=== PATIENT | female | born 1995 | race Caucasian/White ===

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

== ENCOUNTER → 2017-05-10 | Outpatient (CLI) | payer BC, OTHER ==
[2017-05-10 13:29] LABS: URINE APPEARANCE CLEAR (CLEAR); URINE BILIRUBIN NEG (NEG); URINE COLOR YELLOW; URINE NITRITE NEG (NEG); URINE PH 7.5 (4.5-7.5); URINE SPECIFIC GRAVITY 1.016 (1.000-1.030); UROBILINOGEN NEG (NEG)
[2017-05-10 13:39] LABS: MANUAL MICROSCOPIC REQUIRED? NO; REVIEW REQ? NO
== END ==
LOC: C.LABBFT 11:16
PROVIDERS: ATTEND Physician Assistant
DX: R39.9 Unspecified symptoms and signs involving the genitourinary system (principal)

== ENCOUNTER 2017-06-14 17:56 | Emergency (ER) | payer BC, OTHER ==
[~2017-06-14] VITALS: Ht 162.6 cm; Wt 83.0 kg
[~2017-06-14 17:56] MED LIST changes: -ALBU18002 INH; -AMPH20TA2 PO; -BCPILLS PO; -BENZ1CAP90 PO
[2017-06-14 17:57] VITALS: TEMP 37.1; Ht 162.6 cm; Wt 83.0 kg
[2017-06-14] MEDS ORDERED: ALBU18002 INH (18:21)
[2017-06-14] MEDS ORDERED: BCPILLS PO (18:24)
[2017-06-14] MEDS ORDERED: AMPH20TA2 PO (18:24)
--- NOTE | 2017-06-14 18:27 | EMERGENCY ROOM VISIT NOTE ---
ED Visit Note First contact with patient: 18:07 CHIEF COMPLAINT: Sore throat, bilateral ear pain, lost her voice, difficulty catching her breath HISTORY OF PRESENT ILLNESS: This 22-year-old female patient presents to the emergency department, ambulatory, complaining of cold-like symptoms for 3 days. The patient states she initially noticed sore throat and bilateral ear pain, however today she awoke and noticed that she was having difficulty speaking. The patient did see her PCP earlier this week who advised her that the condition is viral in nature, did not start her on antibiotics. The patient does complain of congestion and diarrhea. She states she has not had a runny nose, but does get difficulty catching her breath. Patient denies fever, chills , nausea, vomiting. The patient's mother is currently fighting bronchitis. Has only used cough drops for her symptoms, and has taken no OTC cold medications. She denies any chest pain, wheezing, coughing up sputum or blood, headache, fever, chills, and nausea, vomiting, or other associated symptoms. REVIEW OF SYSTEMS: A 10 system review of systems was performed with positives and pertinent negatives listed in the history of present illness. All other systems were reviewed and are negative. ALLERGIES: None MEDICATIONS: Adderall, oral control pills PMH: None SOCIAL HISTORY: The patient lives locally with family. She denies drug, alcohol use. The patient states she does smoke approximately 6 cigarettes per day. PHYSICAL EXAM: VITALS: Vitals are noted on the nurse's note and reviewed by myself. Vital signs stable. GENERAL: This is a 22-year-old white female, in no acute distress, nondiaphoretic, well-developed well-nourished. SKIN: The skin was without rashes, erythema, edema, or bruising. There is no tenting of the skin. Capillary reflex less than 2 seconds. HEAD: Normocephalic atraumatic. EARS: External auditory canals clear, tympanic membranes pearly sotelo without erythema or effusion bilaterally. EYES: Pupils equal round and reactive to light and accommodation. Conjunctivae without injection, sclerae without icterus. Extraocular movements intact. NOSE: Patent, turbinates without inflammation or discharge. No sinus tenderness. MOUTH: Mucous membranes moist. Tonsils are not enlarged. Pharynx without erythema or exudate. Uvula midline. Airway patent. Tongue does not deviate. NECK: Supple without nuchal rigidity. No lymphadenopathy. No thyromegaly. Cervical spine is nontender. No JVD. HEART: Regular rate and rhythm without murmurs gallops or rubs. LUNGS: Clear to auscultation bilaterally without wheezes, rales or rhonchi. No dullness to percussion. No retractions or accessory muscle use. MUSCULOSKELETAL: No muscle atrophy, erythema, or edema noted. Full range of motion without joint tenderness in all extremities. No tenderness to palpation. Normal gait. Strength 5/5 throughout. NEURO: Patient was alert and oriented to person place and time. Normal sensation to light and sharp touch. Deep tendon reflexes 2+ throughout. No focal neurological deficits. EMERGENCY DEPARTMENT COURSE: The patient was seen and evaluated as above. I had a very extensive discussion with her regarding the likely viral etiology of her illness. The patient was encouraged to use OTC medications for symptomatic relief, and advised to follow up if she is not experiencing improvement in her symptoms and 1 week. I did offer the patient a chest x-ray to rule out pneumonia, however I do not feel that this is necessary, as she is not consistently coughing up sputum, and has not been febrile. The patient states she is okay not having the x-ray completed. The patient was discharged home in good condition. I attest that I have personally reviewed the patient's current medication list. Patient was found to have normal blood pressure on screening and does not require follow-up. DIFFERENTIAL DIAGNOSIS: Upper respiratory infection, pneumonia, bronchitis, tracheobronchitis, laryngitis, strep throat pharyngitis, otitis media, acute sinusitis, malignancy, and others DIAGNOSIS: Upper respiratory infection, laryngitis DISCHARGE INSTRUCTIONS & TREATMENT: You were seen and evaluated in the emergency department today for an upper respiratory infection. I do feel that based on your symptoms, and the duration of illness, this is likely viral in nature. As discussed, antibiotics will not treat viral illness. You have been provided with an albuterol inhaler to use for wheezing or difficulty breathing. Use this inhaler 1-2 puffs every 4-6 hours as needed. If you find that your symptoms are not improving with the use of the inhaler, or if you find that you need to use the inhaler longer than 1 week, return to the ED or follow-up with your PCP. You have been given benzonatate (Tessalon Pearles) to be used for coughing. These should be taken 1 capsule up to 3 times per day as needed for coughing. Do not take this medication more than prescribed. You may use this medication in addition to OTC cough medications. For your sore throat, you may use a 1:1 mixture of liquid Benadryl and liquid Maalox. Gargle and spit this mixture. It will help to soothe the throat and provide some relief. Drink warm tea with honey and lemon, as this will also help to soothe the throat. Gargle with salt water frequently. As discussed, you should take OTC Mucinex and/or Sudafed for your symptoms. Please do not exceed the recommended daily dosages. Ibuprofen(Motrin, Advil) may be used for fever or pain. Use 600mg every six hours as needed. Take with food. Avoid using more than 2400mg in a 24 hour period. Do not use 2400mg per day for more than three consecutive days without physician direction. Prolonged inappropriate use can lead to stomach upset or ulcers. You may take Naproxen 1-2 tablets twice daily in place of ibuprofen. This medication will help with the swelling in your sinuses. (AND/OR) Acetaminophen(Tylenol) may be used for fever or pain. Use 1000mg every six hours as needed. Avoid using more than 3000mg in a 24 hour period. For congestion, you may use Flonase OTC. You may want to consider zinc, echinacea, and vitamin C to help boost your immunity. Please get plenty of rest and drink plenty of fluids. Please return or follow-up with your PCP in 1 week if you are not experiencing any improvement in your symptoms. Return to the emergency department for coughing up blood, difficulty breathing, chest pain, worsening symptoms, or for other concerns. Current/Historical Medications Scheduled Amphetamine-Dextroamphetamine 20MG (Adderall 20MG), 25 MG PO DAILY Control Pills ( Control Pills), 1 TAB PO DAILY Scheduled PRN Albuterol Sulfate (Proair Respiclick), 2 PUFFS INH Q4H PRN for Wheezing Benzonatate (Tessalon Perles), 200 MG PO TID PRN for Cough Allergies Coded Allergies: No Known Allergies (Unverified , 06/14/17) Vital Signs Date Time Temp Pulse Resp B/P (MAP) Pulse Ox O2 Delivery O2 Flow Rate FiO2 06/14/17 18:39 86 16 129/90 98 06/14/17 17:57 37.1 98 16 144/94 96 Departure Information Impression Primary Impression: Upper respiratory infection Additional Impression: Laryngitis Dispostion Home / Self-Care Condition GOOD Prescriptions Benzonatate (Tessalon Perles) 200 Mg Cap 200 MG PO TID Y for Cough, #30 CAP Prov: Madelaine Johnson PA-C 06/14/17 Albuterol Sulfate (Proair Respiclick) 108 Mcg/Act Aer 2 PUFFS INH Q4H Y for Wheezing, #1 INHALER Prov: Madelaine Johnson PA-C 06/14/17 Referrals No Doctor, Assigned (PCP) Patient Instructions ED Upper Resp Infec No Abx Tx, My [facility] Additional Instructions You were seen and evaluated in the emergency department today for an upper respiratory infection. I do feel that based on your symptoms, and the duration of illness, this is likely viral in nature. As discussed, antibiotics will not treat viral illness. You have been provided with an albuterol inhaler to use for wheezing or difficulty breathing. Use this inhaler 1-2 puffs every 4-6 hours as needed. If you find that your symptoms are not improving with the use of the inhaler, or if you find that you need to use the inhaler longer than 1 week, return to the ED or follow-up with your PCP. You have been given benzonatate (Tessalon Pearles) to be used for coughing. These should be taken 1 capsule up to 3 times per day as needed for coughing. Do not take this medication more than prescribed. You may use this medication in addition to OTC cough medications. For your sore throat, you may use a 1:1 mixture of liquid Benadryl and liquid Maalox. Gargle and spit this mixture. It will help to soothe the throat and provide some relief. Drink warm tea with honey and lemon, as this will also help to soothe the throat. Gargle with salt water frequently. As discussed, you should take OTC Mucinex and/or Sudafed for your symptoms. Please do not exceed the recommended daily dosages. Ibuprofen(Motrin, Advil) may be used for fever or pain. Use 600mg every six hours as needed. Take with food. Avoid using more than 2400mg in a 24 hour period. Do not use 2400mg per day for more than three consecutive days without physician direction. Prolonged inappropriate use can lead to stomach upset or ulcers. You may take Naproxen 1-2 tablets twice daily in place of ibuprofen. This medication will help with the swelling in your sinuses. (AND/OR) Acetaminophen(Tylenol) may be used for fever or pain. Use 1000mg every six hours as needed. Avoid using more than 3000mg in a 24 hour period. For congestion, you may use Flonase OTC. You may want to consider zinc, echinacea, and vitamin C to help boost your immunity. Please get plenty of rest and drink plenty of fluids. Please return or follow-up with your PCP in 1 week if you are not experiencing any improvement in your symptoms. Return to the emergency department for coughing up blood, difficulty breathing, chest pain, worsening symptoms, or for other concerns. Problem Qualifiers Primary Impression: Upper respiratory infection URI type: unspecified viral URI Qualified Codes: J06.9 - Acute upper respiratory infection, unspecified; B97.89 - Other viral agents as the cause of diseases classified elsewhere
[2017-06-14] MEDS ORDERED: BENZ1CAP90 PO (18:30)
[2017-06-14 18:39] VITALS: BP 129/90; PULSE 86; O2SAT 98
== END 2017-06-14 18:36 | disposition home or self-care (01) ==
LOC: C.EDB 17:58 → C.EDD 18:36
DX: J06.9 Acute upper respiratory infection, unspecified (principal); J04.0 Acute laryngitis

== ENCOUNTER → 2017-08-30 | Outpatient (CLI) | payer OTHER ==
[~2017-08-30] MED LIST changes: +ALBU18002 INH; +AMPH20TA2 PO; +BCPILLS PO; +BENZ1CAP90 PO; -PRENTAB26 PO
--- NOTE | 2017-08-30 14:16 | DIAGNOSTIC IMAGING REPORT ---
CHEST 2 VIEWS ROUTINE CLINICAL HISTORY: CONTUSION STERNUM trauma COMPARISON STUDY: 01/31/2011 FINDINGS: The bones soft tissues and hemidiaphragms are normal. The cardiomediastinal silhouette is normal. The lungs are clear. The pulmonary vasculature is normal. IMPRESSION: Negative chest. The above report was generated using voice recognition software. It may contain grammatical, syntax or spelling errors. Electronically signed by: Ventura Burnette M.D. 08/30/2017 2:14 PM Dictated Date/Time: 08/30/2017 2:14 PM
== END | disposition home or self-care (01) ==
LOC: C.RAD1850 14:00
PROVIDERS: ATTEND Nurse Practitioner Family
DX: S20.219A Contusion of unspecified front wall of thorax, initial encounter (principal); Y04.2XXA Assault by strike against or bumped into by another person, initial encounter; Y99.0 Civilian activity done for income or pay; Y92.129 Unspecified place in nursing home as the place of occurrence of the external cause

== ENCOUNTER → 2018-04-22 | Outpatient (CLI) | payer OTHER ==
[~2018-04-22] MED LIST changes: -AMPH20TA2 PO; +AMPH25CA PO; -BENZ1CAP90 PO
== END | disposition home or self-care (01) ==
LOC: C.LABSPEC 14:03
PROVIDERS: ATTEND Obstetrics & Gynecology
DX: Z34.81 Encounter for supervision of other normal pregnancy, first trimester (principal)

== ENCOUNTER → 2018-04-29 | Outpatient (CLI) | payer OTHER ==
[2018-04-29 12:23] LABS: BASO % 0.6 %; BASO ABS # 0.06 K/uL (0-0.2); EOS % 1.1 %; EOS ABS # 0.11 K/uL (0-0.5); HEMATOCRIT 43.8 % (37-47); HEMOGLOBIN 15.2 g/dL (12.0-16.0); IG# 0.08 K/uL (0.00-0.02); LYMPH % 22.4 %; MEAN CELL VOLUME 87.1 fL (80-100); MEAN CORPUSCULAR HEMOGLOBIN 30.2 pg (25-34); MEAN CORPUSCULAR HGB CONC 34.7 g/dl (32-36); MEAN PLATELET VOLUME 11.2 fL (7.4-10.4); MONO % 5.2 %; MONO ABS # 0.54 K/uL (0.11-0.59); NEUT % 69.9 %; PLATELET COUNT 243 K/uL (130-400); RED CELL DISTRIBUTION WIDTH CV 12.6 % (11.5-14.5); RED CELL DISTRIBUTION WIDTH SD 40.3 fL (36.4-46.3); WHITE BLOOD COUNT 10.29 K/uL (4.8-10.8)
== END | disposition home or self-care (01) ==
LOC: C.LAB1850 10:28
PROVIDERS: ATTEND Obstetrics & Gynecology
DX: Z34.81 Encounter for supervision of other normal pregnancy, first trimester (principal)

== ENCOUNTER 2020-01-23 06:39 | Inpatient (IN) ==
[2020-01-23] MEDS ORDERED: OXYTOCIN 30 UNITS/500 ML BAG IV PRN (07:20)
[2020-01-23] MEDS ORDERED: LACTATED RINGER'S 1,000 ML IV PRN (07:20)
--- NOTE | 2020-01-23 07:24 | History & Physical Report ---
Date of Service January 23, 2020 Assessment & Plan (1) Short interval between pregnancies affecting , antepartum: - tracing Cat II, variability with accels - pt desires unmedicated - anticipate History of Present Illness Chief Complaint: labor check Primary Care Provider: NO PCP The patient is a 24-year-old 3 para 1-1-0-2, with an EDC of 04 February, at 38+ weeks gestational age who presents for labor check. Patient states her contractions began earlier this day. She denied rupture membranes or vaginal bleeding. Patient had a 36-week previous delivery. She had declined progesterone for this . Patient diagnosed with gestational diabetes this . All abdominal circumferences have been less than the 75th percentile and she has been managed with diet. Laboratory values for this show blood type of A+, antibody negative, rubella immune, hepatitis B negative, she had a negative cell free DNA screening, she declined cystic fibrosis/SMA/MSAFP screening, and a negative third trimester beta strep culture. Allergies Allergy/AdvReac Type Severity Reaction Status Date / Time mushroom Allergy Severe Swelling Verified 01/23/20 06:55 of Lip/Tongue/Throat No Known Drug Allergies Allergy NKDA Verified 01/23/20 06:55 Home Medications Home Medications Medication Instructions Recorded Confirmed Type vit-iron fum-folic ac 1 tab PO DAILY 01/23/20 01/23/20 History [ Vitamin] Patient History Medical History (Updated 12/18/19 @ 13:24 by Mario Alberto Arambula Jr, MD, FACOG) Chlamydia Dysmenorrhea Encounter for anatomic survey First trimester History of anxiety History of depression History of scabies labor (Inactive) (spontaneous vaginal delivery) Varicella Surgical History (Updated 07/08/19 @ 11:07 by Luz Piedra) No pertinent past surgical history Family History (Updated 06/24/19 @ 20:08 by Mikala Acosta) Mother Brain tumor Depression Hypertension Grandfather (Maternal) Diabetes Brother Hepatitis Sister Hepatitis Grandmother (Maternal) Cervical cancer Social History (Updated 07/08/19 @ 11:09 by Luz Piedra) Preferred Language: Romansh Communication Ability: Effective Director Script Required: No Beliefs That Will Affect Care: None marital status: Single marital status details: SULLY- Miles Urbano (28) [phone] Current Living Situation: Significant Other current occupational status: unemployed current occupation: stay at home mom Feels Safe at Home: Yes Safety Concerns: Feels Safe At This Time Smoking Status: Light tobacco smoker Tobacco Type: cigarettes ; Age Started Using Tobacco: 14 ; Cigarettes Per Day: 5 ; Second Hand Exposure: Yes ; Tobacco Cessation Education Requested by Patient: No Hx Alcohol Use: No Hx Substance Use: No Physical Exam Constitutional: WD/WN, vitals as above Respiratory: Auscultation: lungs clear to auscultation bilaterally Cardiovascular: RRR, no murmur, no edema Extremities: no calf tenderness Gastrointestinal (Abdomen): Gravid, Vtx, (+) FHT's, EFW 7 lbs Genitourinary: Cervix: 7-8/100/(+)1 per nursing Results & Data Vital Signs (Past 12 Hours) Vital Signs Temp Pulse Resp BP 01/23/20 07:14 107 H 132/78 01/23/20 07:03 107 H 133/72 01/23/20 06:53 98.2 F 97 H 18 143/88 H Coding Level of Care Code None Diagnoses Short interval between pregnancies affecting , antepartum O09.899
[2020-01-23 07:50] LABS: Hematocrit (blood only) 38.9 % (37-47); Hemoglobin 13.4 g/dL (12.0-16.0); Mean Corpuscular Hemoglobin 31.2 pg (25-34); Mean Corpuscular Volume 90.5 fL (80-100); Mean Platelet Volume 11.2 fL (7.4-10.4); Platelet Count 220 K/uL (130-400); RDW Coefficient of Variation 13.9 % (11.5-14.5); RDW Standard Deviation 45.6 fL (36.4-46.3); White Blood Count 11.27 K/uL (4.8-10.8)
[2020-01-23 07:51] LABS: Mean Corpuscular Hgb Conc 34.4 g/dL (32-36)
--- NOTE | 2020-01-23 08:24 | Delivery Summary ---
Vaginal Delivery Summary Date of Service January 23, 2020 Vaginal Delivery Summary Findings: Viable male infant with Apgars of 8 and 9. NC X1. Baby delivered spontaneously over an intact perineum. Cord gases cord blood samples obtained. Placenta sent for pathological evaluation. Perineum inspected and no lacerations noted. Estimated blood loss 300 cc. Labor note: The patient is a 24-year-old 3 para 1-1-0-2, with an EDC of 04 February, at 38+ weeks gestational age who presents for labor check. Patient states her contractions began earlier this day. She denied rupture membranes or vaginal bleeding. Patient had a 36-week previous delivery. She had declined progesterone for this . Patient diagnosed with gestational diabetes this . All abdominal circumferences have been less than the 75th percentile and she has been managed with diet. Laboratory values for this show blood type of A+, antibody negative, rubella immune, hepatitis B negative, she had a negative cell free DNA screening, she declined cystic fibrosis/SMA/MSAFP screening, and a negative third trimester beta strep culture. Upon admission the patient was 8 cm dilated at a +1 station. Patient declined any regional anesthesia. Artificial rupture of membranes for clear fluid. Patient progressed rapidly to full dilatation and began her second stage. Patient pushed for 5 minutes delivering the viable male infant. Nuchal cord x1. Cord gases and cord blood samples were obtained. Placenta delivered spontaneously. Perineum inspected and found to be intact. Estimated blood loss 300 cc. Sponge needle count was correct.
[2020-01-23] MEDS ORDERED: DIPHTHERIA/TETANUS/PERTUSSIS 0.5 ML SYR/VIAL IM ONE (08:28)
[2020-01-23] MEDS ORDERED: BENZOCAINE 20% AER SPR 82.5 GM CAN EXT PRN (08:28)
[2020-01-23] MEDS ORDERED: ACETAMINOPHEN W/CODEINE #3 1 TAB PO PRN (08:28)
[2020-01-23] MEDS ORDERED: HYDROCORTISONE ACETATE 25 MG SUPP PR PRN (08:28)
[2020-01-23] MEDS ORDERED: SUPERCREAM 0.870% 15 GM JAR EXT PRN (08:28)
[2020-01-23] MEDS ORDERED: ACETAMINOPHEN 325 MG TAB PO PRN (08:28)
[2020-01-23 08:37] LABS: Base Excess Cord Arterial Bld -3.2 mEq/L (-9-1.8); CO2 Cord Arterial Blood 63 mmHg (39.1-73.5); HCO3 Cord Arterial Blood 26 mmol/L (19.7-28.5); PO2 Cord Arterial Blood 22 mmHg (4.1-31.7); pH Cord Arterial Blood 7.24 (7.1-7.38)
[2020-01-23 08:40] LABS: Oxygen Sat Cord Arterial Blood < 60.0 % (<60)
[2020-01-23 08:42] LABS: Base Excess Cord Venous Blood -1.8 mEq/L (-7.7-1.9); Cord Venous Blood HCO3 24 mmol/L (18.4-26.8); Cord Venous Blood PCO2 45 mmHg (30.4-57.2); Cord Venous Blood PO2 31 mmHg (14.1-43.3); Cord Venous Blood pH 7.35 (7.20-7.44)
[2020-01-23] MEDS: IBUPROFEN 600 MG TAB PO PRN ×2 (09:06→23:27)
[2020-01-23] MEDS: OXYTOCIN 30 UNITS/500 ML BAG IV PRN ×3 (09:23→10:47)
[2020-01-23] MEDS ORDERED: CARBOPROST TROMETHAMINE 250 MCG/ML AMPUL ONE (09:50)
[2020-01-23] MEDS ORDERED: OXYCODONE/ACETAMINOPHEN 5mg/325mg TAB PO PRN (09:54)
--- NOTE | 2020-01-23 09:59 | Obstetrical Progress Note ---
Date of Service January 23, 2020 Subjective Called to room by RN for bleeding. Patient delivered vaginally this morning. Had approx 200cc blood loss weighed by RN during period. Patient now feeling low back pain "as if I have to poop." Then I performed exam to find large amount of clots in vagina. Expressed this, and weighed to be 360cc. Total blood loss (excluding blood loss from time of delivery) is now 560cc. Vitals 144/87, pulse 92. Patient is awake and talking. Patient reports she felt significant relief at time of expression of blood clots. Suspect uterine atony. Uterus was 1-2cm above umbilicus prior to expression, and now 1cm below umbilicus after clot expression. One dose hemabate given. Percocet for discomfort with exam/expression of blood clots, as patient does not have an epidural. Will continue to watch closely. Results & Data Vital Signs (Past 12 Hours) Vital Signs Temp Pulse Resp BP 01/23/20 09:51 92 H 144/87 H 01/23/20 09:49 100 H 160/79 H 01/23/20 09:47 96 H 150/92 H 01/23/20 09:36 85 122/74 01/23/20 09:21 90 136/77 01/23/20 09:06 81 154/82 H 01/23/20 08:51 78 20 154/83 H 01/23/20 08:36 86 20 151/78 H 01/23/20 08:20 98 H 20 144/70 H 01/23/20 07:14 107 H 132/78 01/23/20 07:03 36.6 C 107 H 20 133/72 01/23/20 06:53 36.8 C 97 H 18 143/88 H PG Care Time/CCT Total # of Minutes Spent Total Time Spent with Patient: Total time spent is greater than 50% in coordination of care (as documented) at patient's floor/unit and/or counseling patient: Coding Level of Care Code None
[2020-01-23 10:21] LABS: Hematocrit (blood only) 35.7 % (37-47); Hemoglobin 12.1 g/dL (12.0-16.0)
[2020-01-23] MEDS ORDERED: SODIUM CHLORIDE 0.9% 250 ML IV PRN ×2 (10:28→10:44)
--- NOTE | 2020-01-23 10:34 | Anesthesiology Consultation ---
Date of Service January 23, 2020 Assessment & Plan Chart Review Chart Review: Acceptable Risk for Surgery Consults Requested none Teaching & Discussion d/w pt and surgeon about trial of SAB given stable VS and pt preference. MP3 AW. Pt aware that threshold of conversion to GETA with RSI is low. Will monitor tolerance of procedure. Pt accepts all risks ASA [id number] Proposed Anesthesia Anesthesia Type: General and Spinal Risk / Benefits Reviewed With: PT / POA / Parent / Guardian, Accepts Plan and Informed Consent Obtained History Height/Weight Height: 5 ft 4 in Weight: 98.883 kg Allergies Allergy/AdvReac Type Severity Reaction Status Date / Time mushroom Allergy Severe Swelling Verified 01/23/20 06:55 of Lip/Tongue/Throat No Known Drug Allergies Allergy NKDA Verified 01/23/20 06:55 Medications Home Medications Medication Instructions Recorded Confirmed Last Taken vit-iron fum-folic ac 1 tab PO DAILY 01/23/20 01/23/20 01/22/20 08:00 [ Vitamin] Active Medications Generic Name Dose Route Start Last Admin Trade Name Forrestq PRN Reason Stop Dose Admin Oxytocin 30 units in 500 mls @ 999 mls/hr 01/23/20 08:28 01/23/20 10:47 Pitocin IV 02/22/20 08:27 59.94 units/hr .Q31M PRN 999 mls/hr Bleeding Control Administration Protocol 59.94 UNITS/HR Ibuprofen 600 mg 01/23/20 08:28 01/23/20 09:06 Motrin PO 02/22/20 08:27 600 mg Q4H PRN Administration Pain/ARIAS/Cramping/Fever Oxycodone/Acetaminophen 2 tab 01/23/20 09:54 01/23/20 10:05 Percocet 5mg/325mg PO 02/06/20 09:53 2 tab Q4H PRN Administration Pain NPO Date Last Intake of Fluids: 01/23/20 Time Last Intake of Fluids: 09:00 Date Last Intake of Solids: 01/23/20 Time Last Intake of Solids: 09:00 Last Intake of Solids Comment: [place] Past Medical History Medical History Chlamydia Dysmenorrhea Encounter for anatomic survey First trimester History of anxiety History of depression History of scabies labor (Inactive) (spontaneous vaginal delivery) Varicella Exercise / Class Metabolic Activity II 4-5 Yardwork/Stairs/Walk up hill Past Family History Family History Mother Brain tumor Depression Hypertension Grandfather (Maternal) Diabetes Brother Hepatitis Sister Hepatitis Grandmother (Maternal) Cervical cancer Past Surgical History Surgical History No pertinent past surgical history vaginal delivery this AM @0845. Significant bleeding post @1200, recent additional bleeding. POC retained suspected vs lac. Past Anesthesia History No Hx of Anesthesia Complications and No Family Hx of Anesthesia Complications History of PONV No Hx of PONV and No Hx of Motion Sickness Social History Smoking Status: Light tobacco smoker tobacco type: cigarettes Smoking cigarettes per day: 5 Hx Alcohol Use: No Hx Substance Use: No Physical Exam Vital Signs Last Vital Signs Temp 36.6 C 01/23/20 07:03 Pulse 90 01/23/20 10:31 Resp 20 01/23/20 08:51 BP 143/75 H 01/23/20 10:31 ENMT Mouth: no TMJ abnormality Thyromental Distance: > or= 3.5 Finger Breadths Mallampati Class: III Neck normal visual inspection and trachea midline; neck extension not limited Respiratory normal respiratory effort Auscultation: lungs clear to auscultation bilaterally Cardiovascular Rate/Rhythm: regular rate and regular rhythm Heart Sounds: no murmur Musculoskeletal Spine: normal cervical ROM Extremities: full ROM of extremities Neurologic moves all extremities Psychiatric Orientation: alert and oriented x 3 Testing Laboratory Results 01/23/20 10:11
[2020-01-23] MEDS ORDERED: CITRIC ACID/SODIUM CITRATE 15 ML UDC ONE (10:40)
[2020-01-23] MEDS ORDERED: ePHEDrine sulfate 50 MG/ML AMP ONE (10:44)
[2020-01-23] MEDS ORDERED: miSOPROStoL 200 MCG TAB PR ONE (10:44)
[2020-01-23] MEDS ORDERED: OXYTOCIN 10 UNITS/ML VIAL ONE ×2 (10:44→11:39)
[2020-01-23] MEDS ORDERED: CEFAZOLIN 2000MG 2,000 MG/15 ML SYR IV ONE (10:44)
[2020-01-23] MEDS ORDERED: METOCLOPRAMIDE HCL INJ 5 MG/ML 2 ML VIAL ONE (10:44)
[2020-01-23] MEDS ORDERED: ONDANSETRON INJ 2 MG/ML 2 ML VIAL ONE (10:44)
[2020-01-23] MEDS ORDERED: TRANEXAMIC ACID / 0.7% NACL 1,000 MG/100 ML BAG IV STA (10:44)
[2020-01-23] MEDS ORDERED: PHENYLEPHRINE HCL 10 MG/ML VIAL ONE (10:44)
[2020-01-23] MEDS ORDERED: fentaNYL citrate 100 MCG/2 ML VIAL ONE ×2 (10:44→11:45)
[2020-01-23] MEDS ORDERED: MoRPHine SULFATE PF 1 MG/ML 10 ML AMP/VIAL ONE (10:44)
--- NOTE | 2020-01-23 10:44 | Obstetrical Progress Note ---
Date of Service January 23, 2020 Subjective Patient is awake and talking, holding baby. Re-exam reveals large amount of blood on chux pad, I performed vaginal exam to express another large amount of clots. Discussed with patient that we need to go to the OR for exam under anesthesia, possible insertion of Bakri ballon, purpose of finding the bleeding and getting it to stop. Discussed that may need hysterectomy or further surgery to treat. I have ordered blood - 1u PRBC to start and proceed to OR. Patient an d are agreeable, all questions answered. Anesthesia is at bedside. Update: Now blood loss per RN weight is total of 1900cc since time of baby (including 300cc at time of delivery per delivering sprayer insecticide). On the way to OR, will invoke massive transfusion protocol with this updated amount of blood loss. Results & Data Vital Signs (Past 12 Hours) Vital Signs Temp Pulse Resp BP 01/23/20 10:31 90 143/75 H 01/23/20 10:21 88 133/100 01/23/20 10:06 97 H 133/88 01/23/20 09:51 92 H 144/87 H 01/23/20 09:49 100 H 160/79 H 01/23/20 09:47 96 H 150/92 H 01/23/20 09:36 85 122/74 01/23/20 09:21 90 136/77 01/23/20 09:06 81 154/82 H 01/23/20 08:51 78 20 154/83 H 01/23/20 08:36 86 20 151/78 H 01/23/20 08:20 98 H 20 144/70 H 01/23/20 07:14 107 H 132/78 01/23/20 07:03 36.6 C 107 H 20 133/72 01/23/20 06:53 36.8 C 97 H 18 143/88 H PG Care Time/CCT Total # of Minutes Spent Total Time Spent with Patient: Total time spent is greater than 50% in coordination of care (as documented) at patient's floor/unit and/or counseling patient: Coding Level of Care Code None
[2020-01-23] MEDS ORDERED: SODIUM CHLORIDE 0.9% 1000ML 1,000 ML IV SCH (10:45)
[2020-01-23 11:06] LABS: Hemoglobin 12.2 g/dL (12.0-16.0); Mean Corpuscular Volume 88.7 fL (80-100); Platelet Count 209 K/uL (130-400); RDW Coefficient of Variation 13.9 % (11.5-14.5); RDW Standard Deviation 45.3 fL (36.4-46.3); Red Blood Count 4.06 M/uL (4.2-5.4)
[2020-01-23 11:08] LABS: Mean Corpuscular Hgb Conc 33.9 g/dL (32-36)
[2020-01-23 11:27] LABS: BUN Creatinine Ratio 18.1 (10-20); Creatinine Clr Calc Pharmacy 150.5 ml/min; Est GFR (African American) 144.6; Est GFR (Non-African American) 124.8
[2020-01-23] MEDS ORDERED: PROPOFOL IV EMULSION 10 MG/ML 20 ML VIAL IV ONE (11:30)
[2020-01-23] MEDS ORDERED: CEFAZOLIN 250 MG/ML 1 GM VIAL ONE ×2 (11:30→11:41)
[2020-01-23] MEDS ORDERED: SUCCINYLCHOLINE 100MG/5ML SYR ONE (11:30)
[2020-01-23] MEDS ORDERED: LIDOCAINE HCL 2% MPF (LOCAL) 5 ML VIAL INFIL ONE (11:30)
[2020-01-23] MEDS ORDERED: MIDAZOLAM HCL 1 MG/ML 2ML VIAL ONE (11:33)
[2020-01-23] MEDS ORDERED: ePHEDrine sulfate 50 MG/ML AMP IV PRN (11:49)
[2020-01-23] MEDS ORDERED: PROMETHAZINE HCL 12.5 MG in SODIUM CHLORIDE 0.9% 50 ML IV PRN (11:49)
[2020-01-23] MEDS ORDERED: ONDANSETRON INJ 2 MG/ML 2 ML VIAL IV PRN (11:49)
[2020-01-23] MEDS ORDERED: ATROPINE SULFATE 0.1 MG/ML 10ML SYR IV PRN (11:49)
[2020-01-23] MEDS ORDERED: MEPERIDINE HCL 25 MG/ML CARP/VIAL IV PRN (11:49)
[2020-01-23] MEDS ORDERED: fentaNYL citrate 100 MCG/2 ML VIAL IV PRN (11:49)
[2020-01-23] MEDS ORDERED: MoRPHine SULFATE 10 MG/ML CARP/VIAL IV PRN (11:49)
[2020-01-23 12:06] LABS: Fibrinogen 409 mg/dl (184-400); Partial Thromboplastin Ratio 0.8; Partial Thromboplastin Time 23.2 Seconds (21.0-31.0); Prothrombin Time 10.3 Seconds (9.0-12.0)
[2020-01-23 12:09] LABS: D Dimer 14930 ug/L FEU (0-500)
--- NOTE | 2020-01-23 12:31 | Operative Report ---
PG Post Operative Report Pre & Post Diagnosis Operation Date: 01/23/20 11:00 Pre-Op Diagnosis: Exam under Anesthesia; D&C Post-Op Diagnosis: Same I identified the patient and participated in the time-out.: Yes Procedure Operation Date: 01/23/20 11:00 Actual Procedures p Exam under anesthesia, insertion and subsequent removal of Bakri balloon, Dilatation and Curettage(Bilateral) - Jocelyn Wallis DO Surgeon Jocelyn Wallis DO Crna Mike Miguel MD Estimated Blood Loss 100 Findings See Below Retained placenta Specimens Placental fragment Drains none Anesthesia Type General Complications none Disposition Accompanied Patient To Recovery: Yes Disposition: L&D Indications hemorrhage Description of Procedure The patient was consented in her labor room for exam under anesthesia and blood transfusion. She signed informed consent. Questions of her and her were answered. The patient was taken to the operating room, anesthesia attempted a spinal, however this was not tolerated well by patient, and decision was made to proceed to general anesthesia.. The patient was placed under general, and prepared and draped in the usual sterile fashion with feet in candycane stirrups in the dorsolithotomy position. Timeout was confirmed. A weighted speculum was placed in the vagina. The anterior lip of the cervix was grasped with a ring forcep. Blood clots were removed from the vagina. A manual exam of the intrauterine cavity was performed, and a placental fragment was palpated, and gently teased from the anterior aspect of the uterus. This was passed off to be sent to pathology. Using bedside ultrasound for guidance, the large banjo curette was used to perform 2 swipes of the uterus, a small amount of placental tissue was yielded. The uterus immediately began to firm and clamped down. The ring forceps were then used to explore the entirety of the cervix, no cervical lacerations or bleeding were noted. The vagina was also explored in its entirety, and no lacerations or bleeding were noted. A Bakri balloon was placed in the intrauterine cavity, and filled to 500 cc of sterile fluid. No further bleeding was visualized. The patient was receiving IV Pitocin, and presumably from uterine contractions, the uterus began to deliver the Bakri balloon. This was then deflated and removed from the vagina. The uterus was firm, and significantly shrunk below the umbilicus. A weighted speculum was placed in the vagina, and the cervix was watched for 10 minutes to evaluate for any further bleeding. There was no further bleeding. A decision was made not to replace the back re-balloon, as the patient's hemorrhage had resolved. The patient was stable, she was cleaned and awoken from anesthesia, and taken to her labor room for further recovery. She received, while in the operating room, 1 dose of TXA, 1 dose of rectal Cytotec, 1 unit of packed red blood cells. Coags still pending. Her vital signs are stable upon leaving the operating room, and her bleeding has stopped. We will plan for repeat H&H and fibrinogen in 6 hours. I attest to the content of the Intraoperative Record and any orders documented therein. Any exceptions are noted below.
--- NOTE | 2020-01-23 12:36 | Anesthesiology Progress Note ---
Date of Service January 23, 2020 Anesthesia Post Procedure Vital Signs Vital Signs: Temp Pulse Resp BP Pulse Ox 01/23/20 12:34 89 100 01/23/20 12:29 93 H 98 01/23/20 12:26 95 H 138/72 01/23/20 12:24 90 99 01/23/20 12:19 95 H 97 01/23/20 12:15 100 H 115/70 01/23/20 10:50 100 H 122/78 01/23/20 10:35 94 H 139/73 01/23/20 10:31 90 143/75 H 01/23/20 10:21 88 133/100 01/23/20 10:06 97 H 133/88 01/23/20 09:51 92 H 144/87 H 01/23/20 09:49 100 H 160/79 H 01/23/20 09:47 96 H 150/92 H 01/23/20 09:36 85 122/74 01/23/20 09:21 90 136/77 01/23/20 09:06 81 154/82 H 01/23/20 08:51 78 20 154/83 H 01/23/20 08:36 86 20 151/78 H 01/23/20 08:20 98 H 20 144/70 H 01/23/20 07:14 107 H 132/78 01/23/20 07:03 36.6 C 107 H 20 133/72 01/23/20 06:53 36.8 C 97 H 18 143/88 H Transfer of Care Handoff Completed per policy Notes Mental Status: alert / awake / arousable Patient Amnestic to Procedure: Yes Nausea / Vomiting: adequately controlled Pain: adequately controlled Airway Patency, RR, SpO2: stable & adequate BP & HR: stable & adequate Hydration State: stable & adequate Anesthetic Complications: no major complications apparent and Pt Satisfied with anesthetic care
[2020-01-23] MEDS ORDERED: miSOPROStoL 200 MCG TAB ONE (12:48)
[2020-01-23 19:01] LABS: Hematocrit (blood only) 26.3 % (37-47)
[2020-01-23 19:08] LABS: Fibrinogen 272 mg/dl (184-400)
[2020-01-23] MEDS: CEFAZOLIN 1000MG 1,000 MG/7.5 ML SYR IV SCH (19:11)
[2020-01-23] MEDS: DOCUSATE SODIUM 100 MG CAP PO SCH (20:33)
[2020-01-23] MEDS: OXYTOCIN 20 UNITS in LACTATED RINGER'S 1,000 ML IV SCH (20:47)
[2020-01-24] MEDS: CEFAZOLIN 1000MG 1,000 MG/7.5 ML SYR IV SCH ×2 (02:33→10:57)
[2020-01-24] MEDS: OXYTOCIN 20 UNITS in LACTATED RINGER'S 1,000 ML IV SCH (04:52)
[2020-01-24 06:13] LABS: Hematocrit (blood only) 22.8 % (37-47); Hemoglobin 7.8 g/dL (12.0-16.0)
--- NOTE | 2020-01-24 06:44 | Obstetrical Progress Note ---
Date of Service January 24, 2020 Assessment & Plan (1) Vaginal delivery: (2) hemorrhage, delivered: Patient doing well today. Her hgb is 7.8, down from 9.0 last night. this is consistent with her blood loss. she seems asymptomatic. Plan to monitor through day today and see how she is doing. Consider another transfusion if symptomatic. Otherwise, routine ppd one care. d/c antibiotics after next dose. Day #:: 1 Subjective Ambulation: ambulating normally Voiding: no voiding problems Passing Gas:: Yes Diet Tolerance:: regular diet Lochia:: Small Feeding Type:: breast feeding Patient has been up out of bed without lightheadedness or dizziness. she feels well and asking if she can go home today. Physical Exam Constitutional WD/WN, vitals as above Cardiovascular Extremities: no calf tenderness and no edema Gastrointestinal (Abdomen) soft, nt, nd ff/nt at u Results & Data Vital Signs (Past 12 Hours) Vital Signs Temp Pulse Resp BP Pulse Ox 01/24/20 04:30 36.6 C 84 20 122/68 01/23/20 23:30 36.6 C 86 20 95/50 L 01/23/20 20:35 37 C 89 18 108/71 98
[2020-01-24] MEDS: DOCUSATE SODIUM 100 MG CAP PO SCH (07:42)
[2020-01-24] MEDS: IBUPROFEN 600 MG TAB PO PRN (07:42)
[2020-01-24] MEDS ORDERED: PRENATAL VITAMIN 1 TAB PO SCH (08:00)
[2020-01-24] MEDS ORDERED: bisacodyL 5 MG TABEC PO SCH (20:00)
--- NOTE | 2020-01-25 22:19 | Discharge Summary ---
Date of Service January 25, 2020 Admission HPI Per Admitting Provider The patient is a 24-year-old 3 para 1-1-0-2, with an EDC of 04 February, at 38+ weeks gestational age who presents for labor check. Patient states her contractions began earlier this day. She denied rupture membranes or vaginal bleeding. Patient had a 36-week previous delivery. She had declined progesterone for this . Patient diagnosed with gestational diabetes this . All abdominal circumferences have been less than the 75th percentile and she has been managed with diet. Laboratory values for this show blood type of A+, antibody negative, rubella immune, hepatitis B negative, she had a negative cell free DNA screening, she declined cystic fibrosis/SMA/MSAFP screening, and a negative third trimester beta strep culture. Discharge Data Consultations 01/23/20 07:20 Consult Anesthesiology Stat Procedures Performed Operation Date: 01/23/20 11:00 Actual Procedures p Dilatation and Curettage(Bilateral) - Jocelyn Wallis DO Hospital Course (1) Vaginal delivery: Admitted in labor, spontaneous vaginal delivery, then hemorrhage. Took to OR on L&D for exam under anesthesia, retained placenta removed by D&C. Bleeding resolved. DC home POD#1. (2) hemorrhage, delivered: (3) Diet controlled gestational diabetes mellitus (GDM), antepartum: (4) : Coding Level of Care Code None Diagnoses Vaginal delivery O80 hemorrhage, delivered O72.1 Diet controlled gestational diabetes mellitus (GDM), antepartum O24.410 Z34.90
== END 2020-01-24 14:40 | disposition home or self-care (01) | DRG 807 ==
LOC: OPB 06:39 → 4S1 06:46 → 4S2 15:34